=== PATIENT | female | born 1960 | race Caucasian/White ===

== ENCOUNTER → 2016-08-31 | Outpatient (CLI) | payer OTHER | LOC: FIMAGING 13:02 | DX: Z12.31 Encounter for screening mammogram for malignant neoplasm of breast (principal) | CPT/HCPCS: G0202 ==

== ENCOUNTER 2016-09-23 00:56 | Observation (INO) | payer OTHER ==
[2016-09-23] MEDS ORDERED: NS 1,000 ML IV ONE (01:07)
--- NOTE | 2016-09-23 01:09 | EDPHY ---
H & P HPI/ROS: HPI CHIEF COMPLAINT: Syncope, recent surgery HISTORY OF PRESENT ILLNESS: This patient very pleasant 56-year-old female denies having any significant medical history presents emergency room by EMS after she had a syncopal episode witnessed by her . Patient today between 1:00 p.m. and 4:00 p.m. had plastic surgery done by Dr. Trujillo [facility] she got home around 8:30 p.m. she had bilateral breast augmentation as well as abdominal plasty, and a hip revision. She states she felt fine when she got home she ate dinner she had no chest pain or shortness of breath or lightheadedness. She was getting up to go to the bathroom felt fine walking to the bathroom got lightheaded and had a syncopal episode with positive LOC. This was witnessed by her her tried to catch her and she fell and did somewhat catch her however she still hit her head on the wall and had a positive LOC on the ground. EMS arrived to find her diaphoretic with a blood pressure in the 80s. This did improve during transport. Upon arrival here in the emergency room she is complaining of left hip pain and a headache. She does not remember any of the events. She did have a positive LOC. Currently she denies chest pain or shortness of breath. She does feel fatigued and lightheaded. She tells me she is not taking any narcotic pain medicine. Past Medical History: No significant medical history Past Surgical History: surgical history significant for plastic surgery today between 1:00 p.m. on 4:00 p.m.. Abdominal plasty, left hip revision, breast augmentation. Social History: Denies use of drugs alcohol tobacco products Family History: Noncontributory ROS REVIEW OF SYSTEMS: A comprehensive 10 point review of systems is otherwise negative aside from elements mentioned in the history of present illness. Exam Constitutional appears dehydrated, nontoxic, triage nursing summary reviewed, vital signs reviewed, awake/alert. Eyes normal conjunctivae and sclera, EOMI, PERRLA. HENT normal inspection, atraumatic, dry mucous membranes , no epistaxis, neck supple/ no meningismus, no raccoon eyes. Respiratory clear to auscultation bilaterally, normal breath sounds, no respiratory distress, no wheezing. Cardiovascular rate normal, regular rhythm, no murmur, no edema, distal pulses normal. Gastrointestinal soft, non-tender, no rebound, no guarding, normal bowel sounds, no distension, no pulsatile mass. Genitourinary no CVA tenderness. Musculoskeletal She is able to move her left hip. Full range of motion. no midline vertebral tenderness, full range of motion, no calf swelling, no tenderness of extremities, no meningismus, good pulses, neurovascularly intact. Skin breast incisions are clean dry and intact however the right breast shows a very large hematoma. Abdominal plasty incision clean dry and intact, no signs of infection, left hip incision with IVANNA drain in place clean dry intact. pink, warm, & dry, no rash, skin atraumatic. Neurologic awake, alert and oriented x 3, AAOx3, moves all 4 extremities equally, motor intact, sensory intact, CN II-XII intact, normal cerebellar, normal vision, normal speech. Psychiatric normal mood/affect. Heme/Lymph/Immune no lymphadenopathy. Differential Diagnosis: Includes but is not limited to in a particular order blood loss anemia leading to syncope, cardiac arrhythmia, dehydration, electrolyte disturbance, doubt acute coronary syndrome, head trauma with head strike, acute head bleed. Medical Decision Making: Plan for this patient had an IV established will obtain blood work she received IV fluid bolus she will be typed and screen. She will need EKG, chest x-ray showed knee x-ray of her left hip due to pain from fall. Check electrolytes, check troponin. Hydrate her and re-evaluate. Also will speak with her plastic surgeon Dr. Murphy. Re-evaluation: CT scan of the head without IV contrast The results of the study are negative for acute traumatic injury. The study was read by Dr. Coleman. I viewed the images myself on the PACS system. EKG interpretation by me on record in ezeep system. Impression time of EKG 1:40 a.m., this is sinus rhythm rate of 52. No acute ischemic changes. No signs of cardiac arrhythmia. Intervals are appropriate. Unremarkable EKG. ED x-ray chest one view: negative for acute cardiopulmonary disease. Image interpreted by myself. ED x-ray hip left: negative for acute fracture. Hardware appears to be in appropriate place. No evidence of dislocation or fracture. Image interpreted by myself. 0216: re-evaluation at this time patient is planning to go the operating room with Dr. Trujillo. Postoperative hematoma she is hemodynamically stable here at this time. EKG is nonischemic troponin negative. Patient received IV fluids. CT head reviewed negative x-ray chest negative and hip x-ray negative. Plan is for this patient to go to the operating room to have evacuation of the right breast hematoma. She will be admitted. She did have a syncopal episode prior to arrival most likely due to recent surgery dehydration and blood loss anemia. She is hemodynamically stable at this time. No evidence of acute trauma on evaluation. Source: Patient, Family, EMS - Medical/Surgical History Hx Asthma: No Hx Chronic Respiratory Disease: No Hx Diabetes: No Hx Cardiac Disease: No Hx Renal Disease: No Hx Cirrhosis: No Hx Alcoholism: No Hx HIV/AIDS: No Hx Splenectomy or Spleen Trauma: No Other PMH: BILATERAL HERNIA SX 2000, CELIAC'S Constitutional: Initial Vital Signs Temperature (C) 36.4 C 09/23/16 01:00 Heart Rate 49 L 09/23/16 01:00 Respiratory Rate 18 09/23/16 01:00 Blood Pressure 100/67 09/23/16 01:00 O2 Sat (%) 100 09/23/16 01:00 O2 Delivery Mode Nasal Cannula O2 (L/minute) 2 Allergies/Adverse Reactions: No Known Allergies Allergy (Unverified 09/23/13 11:01) Home Medications: Medication Instructions Recorded Ibuprofen 200 mg PO DAILY PRN 09/23/13 Medical Decision Making - Data Points Laboratory Results: Laboratory Results 09/23/16 01:30 09/23/16 01:10 Medications Given: Discontinued Medications Hydrocodone Bitart/Acetaminophen ([place] 5/325) 1 - 2 tab PO Q4 PRN PRN Reason: Pain, Moderate Able to Take PO Stop: 10/03/16 02:10 Last Admin: 09/23/16 17:05 Dose: 1 tab Sodium Chloride (Ns) 1,000 mls @ 0 mls/hr IV ONCE ONE PRN Reason: Wide Open Stop: 09/23/16 01:08 Last Admin: 09/23/16 01:40 Dose: 1,000 mls Cefazolin Sodium/Dextrose (Ancef 1 Gm (Premix)) 50 mls @ 200 mls/hr IV Q8 PJ PRN Reason: Protocol Stop: 09/23/16 14:14 Last Admin: 09/23/16 06:21 Dose: 50 mls Lactated Ringer's (Lr) 1,000 mls @ 100 mls/hr IV CONT PJ Stop: 03/22/17 02:29 Last Admin: 09/23/16 06:21 Dose: 1,000 mls Departure - Departure Disposition: To OP Cath/Surgery Clinical Impression: Dehydration, Breast hematoma Syncope Qualifiers: Syncope type: unspecified Qualified Code(s): R55 - Syncope and collapse Condition: Good
[2016-09-23 01:30] LABS: % IMMATURE GRANULYOCYTES 0.6 % (0.0-1.1); ADD DIFF? NO; ADD MORPH? NO; ADD SCAN? NO; ATYPICAL LYMPHOCYTE FLAG 0 (0-99); FRAGMENT RBC FLAG 0 (0-99); HEMATOCRIT 36.4 % (38.0-47.0); HEMOGLOBIN 12.5 g/dL (12.6-16.3); LEFT SHIFT FLG 0 (0-99); LIPEMIA HEMOLYSIS FLAG 90 (0-99); MEAN CELL HEMOGLOBIN 31.4 pg (27.9-34.1); MEAN CELL HEMOGLOBIN CONCENTR. 34.3 g/dL (32.4-36.7); MEAN CELL VOLUME 91.5 fL (81.5-99.8); MEAN PLATELET VOLUME 9.3 fL (8.7-11.7); PLATELET CLUMPS FLAG 10 (0-99); PLATELET COUNT 274 10^3/uL (150-400); RED BLOOD CELL COUNT 3.98 10^6/uL (4.18-5.33); RED CELL DISTRIBUTION WIDTH 12.5 % (11.5-15.2)
[2016-09-23 01:43] LABS: ALANINE AMINOTRANSFERASE 34 IU/L (9-52); ALBUMIN 3.9 g/dL (3.5-5.0); ALKALINE PHOSPHATASE 38 IU/L (38-126); ANION GAP 11 mEq/L (8-16); ASPARTATE AMINOTRANSFERASE 24 IU/L (14-46); BILIRUBIN,TOTAL 1.3 mg/dL (0.1-1.4); BILIRUBIN-CONJUGATED 0.3 mg/dL (0.0-0.5); CALCIUM 9.4 mg/dL (8.5-10.4); CARBON DIOXIDE 22 mEq/l (22-31); CHLORIDE 101 mEq/L (97-110); GLOMERULAR FILTRATION RATE 58; GLUCOSE 210 mg/dL (70-100); MAGNESIUM 1.8 mg/dL (1.6-2.3); POTASSIUM 4.8 mEq/L (3.5-5.2); SODIUM 134 mEq/L (134-144); TOTAL PROTEIN 6.4 g/dL (6.3-8.2)
[2016-09-23] MEDS ORDERED: BUPIVACAINE 0.25% 30 ML SDV ONE (01:50)
--- NOTE | 2016-09-23 01:50 | CPEKG ---
Heart Rate: 52 RR Interval: 1154 P-R Interval: 140 QRSD Interval: 76 QT Interval: 460 QTC Interval: 428 P [place]: 78 QRS [place]: 57 T Wave [place]: 68 EKG Severity - NORMAL ECG - EKG Impression: SINUS RHYTHM Electronically Signed By: Seth Keating 23-Sep-2016 07:29:26
[2016-09-23] MEDS ORDERED: POLYMYXIN B SULFATE 500,000 UNIT/10 ML SYR IRR ONE (01:51)
[2016-09-23] MEDS ORDERED: BACITRACIN 50,000 UNITS/10 ML SYR IRR ONE (01:51)
[2016-09-23] MEDS ORDERED: ceFAZolin 1 GM/5 ML SYR ONE (01:51)
[2016-09-23 01:52] LABS: TROPONIN I < 0.012 ng/mL (0-0.034)
[2016-09-23 01:53] LABS: INR 1.14 (0.83-1.16); PROTIME(PATIENT) 14.5 SEC (12.0-15.0)
[2016-09-23] MEDS ORDERED: ONDANSETRON 4 MG/2 ML VIAL ONE (01:54)
[2016-09-23] MEDS ORDERED: LIDOCAINE 2% 5 ML SDV ONE (01:54)
[2016-09-23] MEDS ORDERED: fentaNYL 100 MCG/2 ML INJ ONE (01:54)
[2016-09-23] MEDS ORDERED: ROCURONIUM 50 MG/5 ML VIAL ONE (01:54)
[2016-09-23] MEDS ORDERED: PROPOFOL 200 MG/20 ML VIAL ONE (01:54)
[2016-09-23] MEDS ORDERED: DEXAMETHASONE 4 MG/ML VIAL ONE (01:54)
[2016-09-23 01:55] LABS: % IMMATURE GRANULYOCYTES 0.4 % (0.0-1.1); ABSOLUTE IMMATURE GRANULOCYTES 0.07 10^3/uL (0.00-0.10); ADD DIFF? NO; ADD MORPH? NO; ADD SCAN? NO; ATYPICAL LYMPHOCYTE FLAG 0 (0-99); FRAGMENT RBC FLAG 0 (0-99); HEMATOCRIT 32.5 % (38.0-47.0); HEMOGLOBIN 11.1 g/dL (12.6-16.3); LEFT SHIFT FLG 0 (0-99); LIPEMIA HEMOLYSIS FLAG 90 (0-99); MEAN CELL HEMOGLOBIN 31.2 pg (27.9-34.1); MEAN CELL HEMOGLOBIN CONCENTR. 34.2 g/dL (32.4-36.7); MEAN CELL VOLUME 91.3 fL (81.5-99.8); MEAN PLATELET VOLUME 9.4 fL (8.7-11.7); PLATELET CLUMPS FLAG 80 (0-99); PLATELET COUNT 176 10^3/uL (150-400); RED BLOOD CELL COUNT 3.56 10^6/uL (4.18-5.33); RED CELL DISTRIBUTION WIDTH 12.6 % (11.5-15.2)
[2016-09-23] MEDS ORDERED: MIDAZOLAM 2 MG/2 ML VIAL ONE (02:04)
[2016-09-23] MEDS ORDERED: HYDROmorphONE/DILAUDID 6 MG/30 ML PCA IV PRN (02:11)
[2016-09-23] MEDS ORDERED: ONDANSETRON DISINTEGRATING 4 MG TAB PO PRN (02:11)
[2016-09-23] MEDS ORDERED: HYDROmorphONE/DILAUDID 2 MG TAB PO PRN (02:11)
[2016-09-23] MEDS ORDERED: PROMETHAZINE HCL 25 MG/ML INJ IVP PRN (02:11)
[2016-09-23] MEDS ORDERED: LR 1,000 ML IV SCH (02:30)
[2016-09-23] MEDS ORDERED: ceFAZolin 1 GM VIAL ONE ×2 (02:38)
[2016-09-23] MEDS ORDERED: GENTAMICIN SULFATE 80 MG/2 ML VIAL ONE (02:47)
[2016-09-23] MEDS ORDERED: AVITENE POWDER 1 GM JAR TP ONE (03:06)
[2016-09-23] MEDS ORDERED: SUGAMMADEX SODIUM 200 MG/2 ML VIAL IVP ONE (03:22)
[2016-09-23] MEDS: HYDROCODONE/APAP 5/325 TAB PO PRN ×3 (11:14→17:05)
[2016-09-23 11:19] VITALS: RESP 14
[2016-09-23 15:56] VITALS: BP 106/60; PULSE 75; TEMP 99.9; O2SAT 100
--- NOTE | 2016-09-23 16:33 | SOAPPROG ---
SOAP Progress Note Assessment/Plan: Assessment: sat early PO Plan:Home with inst. Office Tuesday. Call prn 09/23/16 16:32 Subjective: feels well, comfortable and ambulatory Objective: Vital Signs Temp Pulse Resp BP Pulse Ox 37.7 C 75 14 106/60 100 09/23/16 15:53 09/23/16 15:53 09/23/16 15:53 09/23/16 15:53 09/23/16 15:53 09/22/16 09/23/16 09/24/16 05:59 05:59 05:59 Intake Total 1700 Output Total 953 130 Balance 747 -130 PT 14.5 SEC (12.0-15.0) 09/23/16 01:30 INR 1.14 (0.83-1.16) 09/23/16 01:30 VSS, I&O appropriate. no further evidence of bleeding ICD10 Worksheet Patient Problems: Problems Problem Status Onset Breast hematoma Acute Dehydration Acute Syncope Acute Cellulitis and abscess of leg, except foot Acute Septic arthritis of ankle or foot, right Acute
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
== END 2016-09-23 17:20 | disposition home or self-care (01) ==
LOC: EDUNIT# → FLD 04:42
PROVIDERS: ADMIT Specialist; ATTEND Specialist
PROC: 0H9T0ZZ Drainage of Right Breast, Open Approach (ICD-10-PCS; principal; 2016-09-23 04:45)
DX: L76.31 Postprocedural hematoma of skin and subcutaneous tissue following a dermatologic procedure (principal); R55 Syncope and collapse; M25.552 Pain in left hip; E86.0 Dehydration
CPT/HCPCS: 10140; 70450; 71010; 73521; 93005; G0378; J0690; J1100; J2250; J2405; J2704; J3010

== ENCOUNTER 2017-09-07 11:20 | Emergency (ER) | payer OTHER, BC ==
[2017-09-07 11:40] VITALS: BP 144/96; PULSE 77; RESP 18; TEMP 97.7; O2SAT 99
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
== END 2017-09-07 12:52 | disposition home or self-care (01) ==
DX: S16.1XXA Strain of muscle, fascia and tendon at neck level, initial encounter (principal); V49.49XA Driver injured in collision with other motor vehicles in traffic accident, initial encounter; Y92.410 Unspecified street and highway as the place of occurrence of the external cause; Y99.8 Other external cause status; Y93.89 Activity, other specified